=== PATIENT | male | born 1940 | race Caucasian/White ===

== ENCOUNTER 2017-08-21 14:43 | Observation (INO) | payer MEDICARE ==
[2017-08-21] VITALS (8 sets, daily range): BP systolic 95–191; BP diastolic 55–91; PULSE 74–88; RESP 15–22; TEMP 97.9–98.3; O2SAT 97–99
[~2017-08-21] VITALS: Ht 177.8 cm; Wt 76.1 kg
[~2017-08-21 14:43] MED LIST: ASPI81 PO; ATOR80TA41 PO; HYDR12.56 PO; PLAV75TA PO; TRAM50 PO; [UNRECOGNIZED DRUG - SUPPLY]
[2017-08-21] MEDS ORDERED: COUM5TAB PO (14:50)
[2017-08-21] MEDS ORDERED: ASPI-516 CHEW (14:56)
[2017-08-21] MEDS ORDERED: LISI-519 PO (14:56)
[2017-08-21] MEDS ORDERED: ATOR10TA15 PO (14:56)
[2017-08-21] MEDS ORDERED: HYDR12.56 PO (14:56)
[2017-08-21] MEDS ORDERED: ISOS30TA3 PO (14:56)
[2017-08-21] MEDS ORDERED: METO50TA PO (14:56)
[2017-08-21 15:19] LABS: AUTOMATED NEUTROPHIL # 3.8 TH/MM3 (1.8-7.7); BASOPHIL # 0.1 TH/MM3 (0-0.2); BASOPHIL % 0.9 % (0.0-2.0); EOSINOPHIL # 0.3 TH/MM3 (0-0.4); EOSINOPHIL % 2.9 % (0.0-4.0); HEMO FLAGS DIFF FINAL; LYMPH % 39.3 % (9.0-44.0); LYMPHOCYTE # 3.5 TH/MM3 (1.0-4.8); MEAN CELL VOLUME 98.6 FL (80.0-100.0); MEAN CORPUSCULAR HEMOGLOBIN 33.7 PG (27.0-34.0); MEAN CORPUSCULAR HGB CONC 34.2 % (32.0-36.0); MONO % 13.6 % (0.0-8.0); NEUT % 43.3 % (16.0-70.0); PLATELET COUNT 214 TH/MM3 (150-450); RED BLOOD COUNT 4.16 MIL/MM3 (4.50-5.90); RED CELL DISTRIBUTION WIDTH 13.9 % (11.6-17.2); WHITE BLOOD COUNT 8.8 TH/MM3 (4.0-11.0)
[2017-08-21] MEDS ORDERED: SODIUM CHLOR 0.9% 1000 ML INJ 1,000 ML IV ONE (15:30)
--- NOTE | 2017-08-21 15:34 | PD ---
HPI Chief Complaint: Syncope/Near-Syncope Time Seen by Provider: 14:47 Travel History International Travel<30 days: No Contact w/Intl Traveler<30days: No Traveled to known affect area: No History of Present Illness HPI 76-year-old male that presents to the ED for evaluation of syncope. Patient had a witnessed syncopal episode while walking on the sidewalk. Patient hit his head and does not remember what happened. He does not remember what happened before he had the syncopal event. He denies ever having to like this before. He does have a history of ACS as well as defibrillator in place. He denies it going off but he is not sure if she doesn't remember what actually happened. Per patient he did feel weak and lethargic after the incident but now he feels like he is getting more back to normal. He denies any abdominal pain. He does take Coumadin and states that his last Coumadin level was on Wednesday and was normal. He denies any chest pain or shortness of breath. No abdominal pain. Patient complains of headache and has a small superficial abrasion to the back of the head. She denies any neck pain or back pain. No leg or arm pain. Patient has chronic left foot drop and uses this splint for it. He uses a cane usually to ambulate. He denies any other medical issues at this time. Pain per patient is 4 out of 10 mainly on the back of the head. PFSH Past Medical History Blood Disorders: No Heart Rhythm Problems: No Cancer: No Cardiac Catheterization: Yes Cardiovascular Problems: Yes (STENTS X4) High Cholesterol: Yes Chemotherapy: No Chest Pain: No Congestive Heart Failure: No Diabetes: No Endocrine: No Genitourinary: No Hypertension: Yes Musculoskeletal: No Neurologic: Yes Psychiatric: No Respiratory: No Radiation Therapy: No Thyroid Disease: No Tetanus Vaccination: Unknown Influenza Vaccination: No Past Surgical History Coronary Stent: Yes Social History Alcohol Use: Yes (3-4 BEERS DAY X5 DAYS) Tobacco Use: No Substance Use: No Allergies-Medications (Allergen,Severity, Reaction): Coded Allergies: No Known Allergies (Unverified Adverse Reaction, Unknown, 08/21/17) Reported Meds & Prescriptions Reported Meds & Active Scripts Active Reported Atorvastatin (Atorvastatin Calcium) 10 Mg Tab 10 Mg PO HS Hydrochlorothiazide 12.5 Mg Tab 12.5 Mg PO DAILY Isosorbide Mononitrate ER (Isosorbide Mononitrate) 30 Mg Luci 30 Mg PO DAILY Lisinopril 5 Mg Tab 5 Mg PO DAILY Metoprolol Tartrate 50 Mg Tab 50 Mg PO BID Aspirin 81 Mg Chew 81 Mg CHEW DAILY Coumadin (Warfarin) 5 Mg Tab 5 Mg PO DAILY Review of Systems Except as stated in HPI: all other systems reviewed are Neg Physical Exam Narrative GENERAL: SKIN: Warm and dry. Patient has skin abrasion which is about 3 cm in diameter to the occipital head. No obvious sign of deep laceration. HEAD: Atraumatic. Normocephalic. EYES: Pupils equal and round. No scleral icterus. No injection or drainage. ENT: No nasal bleeding or discharge. Mucous membranes pink and moist. Tongue is midline. No uvula deviation. NECK: Trachea midline. No JVD. CARDIOVASCULAR: Regular rate and rhythm. No murmurs, S3, S4. RESPIRATORY: No accessory muscle use. Clear to auscultation. Breath sounds equal bilaterally. GASTROINTESTINAL: Abdomen soft, non-tender, nondistended. Hepatic and splenic margins not palpable. MUSCULOSKELETAL: Extremities without clubbing, cyanosis, or edema. No obvious deformities. Full range of motion of the upper extremities with no pain. 2+ pulses bilaterally. Patient has difficulty moving the left leg which is chronic for him. Pupils pulses bilaterally. Full range of motion right lower extremity with no pain or deformity noted. No hip pain noted. Neurovascular intact with the exception of the left foot for which she has foot drop and weakness. NEUROLOGICAL: Awake and alert. No obvious cranial nerve deficits. Motor grossly within normal limits. Five out of 5 muscle strength in the arms and legs. Normal speech. PSYCHIATRIC: Appropriate mood and affect; insight and judgment normal. Data Data Last Documented VS Vital Signs Date Time Temp Pulse Resp B/P (MAP) Pulse Ox O2 Delivery O2 Flow Rate FiO2 08/21/17 17:15 88 18 135/73 (93) 98 Room Air 08/21/17 14:47 97.9 Orders Orders Electrocardiogram (08/21/17 14:54) Complete Blood Count With Diff (08/21/17 14:54) Comprehensive Metabolic Panel (08/21/17 14:54) Ckmb (Isoenzyme) Profile (08/21/17 14:54) Troponin I (08/21/17 14:54) Prothrombin Time / Inr (Pt) (08/21/17 14:54) Act Partial Throm Time (Ptt) (08/21/17 14:54) Urinalysis - C+S If Indicated (08/21/17 14:54) Magnesium (Mg) (08/21/17 14:54) Thyroid Stimulating Hormone (08/21/17 14:54) Chest, Single Ap (08/21/17 14:54) Ct Brain W/O Iv Contrast(Rout) (08/21/17 14:54) Iv Access Insert/Monitor (08/21/17 14:54) Ecg Monitoring (08/21/17 14:54) Oximetry (08/21/17 14:54) Orthostatic Vital Signs (08/21/17 14:54) Ct Cerv Spine W/O Contrast (08/21/17 ) Sodium Chlor 0.9% 1000 Ml Inj (Ns 1000 M (08/21/17 15:30) CKMB (08/21/17 15:00) CKMB% (08/21/17 15:00) Admit Order (Ed Use Only) (08/21/17 18:15) Labs Laboratory Tests Test 08/21/17 15:00 08/21/17 16:10 08/21/17 17:55 White Blood Count 8.8 TH/MM3 Red Blood Count 4.16 MIL/MM3 Hemoglobin 14.0 GM/DL Hematocrit 41.0 % Mean Corpuscular Volume 98.6 FL Mean Corpuscular Hemoglobin 33.7 PG Mean Corpuscular Hemoglobin Concent 34.2 % Red Cell Distribution Width 13.9 % Platelet Count 214 TH/MM3 Mean Platelet Volume 9.4 FL Neutrophils (%) (Auto) 43.3 % Lymphocytes (%) (Auto) 39.3 % Monocytes (%) (Auto) 13.6 % Eosinophils (%) (Auto) 2.9 % Basophils (%) (Auto) 0.9 % Neutrophils # (Auto) 3.8 TH/MM3 Lymphocytes # (Auto) 3.5 TH/MM3 Monocytes # (Auto) 1.2 TH/MM3 Eosinophils # (Auto) 0.3 TH/MM3 Basophils # (Auto) 0.1 TH/MM3 CBC Comment DIFF FINAL Differential Comment Blood Urea Nitrogen 30 MG/DL Creatinine 1.38 MG/DL Random Glucose 106 MG/DL Total Protein 7.6 GM/DL Albumin 4.2 GM/DL Calcium Level 9.0 MG/DL Magnesium Level 2.3 MG/DL Alkaline Phosphatase 94 U/L Aspartate Amino Transf (AST/SGOT) 34 U/L Alanine Aminotransferase (ALT/SGPT) 31 U/L Total Bilirubin 0.4 MG/DL Sodium Level 132 MEQ/L Potassium Level 4.5 MEQ/L Chloride Level 99 MEQ/L Carbon Dioxide Level 27.9 MEQ/L Anion Gap 5 MEQ/L Estimat Glomerular Filtration Rate 50 ML/MIN Total Creatine Kinase 236 U/L Creatine Kinase MB 3.1 NG/ML Troponin I LESS THAN 0.02 NG/ML Thyroid Stimulating Hormone 3rd Gen 0.785 uIU/ML Prothrombin Time 19.3 SEC Prothromb Time International Ratio 1.9 RATIO Activated Partial Thromboplast Time 30.1 SEC Urine Color LIGHT-YELLOW Urine Turbidity CLEAR Urine pH 5.5 Urine Specific [place] 1.012 Urine Protein NEG mg/dL Urine Glucose (UA) NEG mg/dL Urine Ketones 10 mg/dL Urine Occult Blood NEG Urine Nitrite NEG Urine Bilirubin NEG Urine Urobilinogen LESS THAN 2.0 MG/DL Urine Leukocyte Esterase NEG Urine RBC 2 /hpf Urine WBC LESS THAN 1 /hpf Urine Hyaline Casts 1 /lpf Urine Mucus FEW /lpf Microscopic Urinalysis Comment CULT NOT INDICATED MDM Medical Decision Making Medical Screen Exam Complete: Yes Emergency Medical Condition: Yes Medical Record Reviewed: Yes Interpretation(s) CBC & BMP Diagram 08/21/17 15:00 Total Protein 7.6, Albumin 4.2, Calcium Level 9.0, Magnesium Level 2.3, Alkaline Phosphatase 94, Aspartate Amino Transf (AST/SGOT) 34, Alanine Aminotransferase (ALT/SGPT) 31, Total Bilirubin 0.4 Last Impressions Chest X-Ray 08/21/17 8404 Signed Impressions: Service Date/Time: Monday, August 21, 2017 15:22 - CONCLUSION: 1. No acute cardiopulmonary disease. Juanito Edward MD troponin and CKMB negative coags WNL EKG shows sinus rhythm with no sign of acute ischemia or arrhythmia read by me and attending. CT of the head showed no sign of acute disease but did show what appears to be possible enlargement of the ventricles concerning for possible hydrocephalus per radiology report. This has not changed from CT done on September of this year. CT of the cervical spine show chronic disease with no sign of acute disease. Differential Diagnosis Chest pain versus ACS versus syncope versus presyncope versus orthostatic hypotension versus anemia versus bleeding versus head injury versus bleeding hematoma Narrative Course 76-year-old male that presents to the ED for evaluation of syncope. Patient was properly examined and was found to have signs and symptoms consistent with syncope. Unclear etiology at this time. Orthostatics were positive with more of a 60 point drop in systolic BP. Labs and imaging showed no sign of acute disease. Orthostatics were positive with 60 point drop on the systolic pressure. Patient was very symptomatic. Patient feels better with sitting or laying but whenever he stands he cannot ambulate. Because of patient's commorbidities including significant cardiac disease I do recommend admission for further evaluation. Patient agrees with this plan. My attending Dr. Daley was made aware of all findings and agrees to admission. ROBERT was paged. Dr Nichols agrees to admission. Diagnosis Primary Impression: Syncope Qualified Codes: R55 - Syncope and collapse Additional Impressions: Head injury, acute Qualified Codes: S09.90XA - Unspecified injury of head, initial encounter Orthostatic hypotension Admitting Information Admitting Physician Requests: Admit Mario Hsu Aug 21, 2017 15:34
[2017-08-21 15:47] LABS: ALKALINE PHOSPHATASE 94 U/L (45-117); ALT (GPT) 31 U/L (12-78); ANION GAP 5 MEQ/L (5-15); AST (GOT) 34 U/L (15-37); BICARBONATE 27.9 MEQ/L (21.0-32.0); BLOOD UREA NITROGEN 30 MG/DL (7-18); CHLORIDE 99 MEQ/L (98-107); CREATINE KINASE 236 U/L (39-308); GLOMERULAR FILTRATION RATE 50 ML/MIN (>89); MAGNESIUM 2.3 MG/DL (1.5-2.5); SODIUM (NA) 132 MEQ/L (136-145); TOTAL BILIRUBIN ADULT 0.4 MG/DL (0.2-1.0)
--- NOTE | 2017-08-21 15:48 | RADRPT ---
EXAM DATE/TIME: 08/21/2017 15:22 [facility] COMPARISON: No previous studies available for comparison. INDICATIONS : Syncope. MEDICAL HISTORY : Cardiovascular disease. SURGICAL HISTORY : Defribillator. Stents. ENCOUNTER: Initial ACUITY: 1 day PAIN SCORE: 0/10 LOCATION: Bilateral chest FINDINGS: Dual-lead AICD device in place. No significant focal pleural or parenchymal opacities. Cardiomediasti nal contours are within normal limits for portable technique. Bony thorax is intact. CONCLUSION: 1. No acute cardiopulmonary disease. Juanito Edward MD on August 21, 2017 at 15:45 Board Certified Radiologist. This report was verified electronically.
[2017-08-21 15:51] LABS: POTASSIUM 4.5 MEQ/L (3.5-5.1)
[2017-08-21 16:04] LABS: CKMB 3.1 NG/ML (0.5-3.6)
[2017-08-21 16:34] LABS: APTT (PATIENT) 30.1 SEC (24.3-30.1); INTERNATIONAL NORMALIZED RATIO 1.9 RATIO; PROTHROMBIN TIME - PATIENT 19.3 SEC (9.8-11.6)
--- NOTE | 2017-08-21 17:31 | RADRPT ---
EXAM DATE/TIME: 08/21/2017 16:59 [facility] COMPARISON: No previous studies available for comparison. INDICATIONS : Syncopal episode, hit back of head, headache. RADIATION DOSE: 46.17 CTDIvol (mGy) MEDICAL HISTORY : Cardiovascular disease. Hypertension. SURGICAL HISTORY : Coronary artery stent. ENCOUNTER: Initial ACUITY: 1 day PAIN SCALE: 4/10 LOCATION: Bilateral occipital TECHNIQUE: Multiple contiguous axial images were obtained of the head. Using automated exposure control and adj ustment of the mA and/or kV according to patient size, radiation dose was kept as low as reasonably a chievable to obtain optimal diagnostic quality images. DICOM format image data is available electro nically for review and comparison. FINDINGS: CEREBRUM: Moderate diffuse cerebral atrophy. Left thalamic lacunar infarct. Ventricles are out of proportion to degree of atrophy. This is similar to report of prior CT exam No evidence of midline shift, mass les ion, hemorrhage or acute infarction. No extra-axial fluid collections are seen. POSTERIOR FOSSA: The cerebellum and brainstem are intact. The 4th ventricle is midline. The cerebellopontine angle i s unremarkable. EXTRACRANIAL: The visualized portion of the orbits is intact. SKULL: The calvaria is intact. No evidence of skull fracture. CONCLUSION: 1. Senescent changes with stable left thalamic lacunar infarct. 2. Ventricles are dilated out of proportion to degree of atrophy. This is similar to report of [facility] 09/12/2012. Again, correlation for normal pressure hydrocephalus is recommended. 3. No acute intracranial abnormality. Juanito Edward MD on August 21, 2017 at 17:27 Board Certified Radiologist. This report was verified electronically.
--- NOTE | 2017-08-21 17:33 | RADRPT ---
EXAM DATE/TIME: 08/21/2017 16:59 [facility] COMPARISON: No previous studies available for comparison. INDICATIONS : Syncopal episode, head laceration. RADIATION DOSE: 42.90 CTDIvol (mGy) MEDICAL HISTORY : Cardiovascular disease. Hypertension. SURGICAL HISTORY : Coronary artery stent. ENCOUNTER: Initial ACUITY: 1 day PAIN SCALE: 2/10 LOCATION: Bilateral neck TECHNIQUE: Volumetric scanning of the cervical spine was performed. Multiplanar reconstructions in the sagittal, coronal and oblique axial planes were performed. Using automated exposure control and adjustment o f the mA and/or kV according to patient size, radiation dose was kept as low as reasonably achievable to obtain optimal diagnostic quality images. DICOM format image data is available electronically f or review and comparison. FINDINGS: There is no acute fracture. There is a grade 1 anterolisthesis of C4 on C5 and retrolisthesis of C5 o n C6 which is likely degenerative in nature. There is advanced degenerative disc disease at C5-6. Mod erate AP canal stenosis present at this level. CONCLUSION: No acute fracture. Advanced degenerative disc disease, especially at C5-6 with a grade 1 retrolisthes is and moderate stenosis. Amado Quiros MD on August 21, 2017 at 17:27 Board Certified Radiologist. This report was verified electronically.
[2017-08-21 18:13] LABS: BLOOD, URINE NEG (NEG); COMMENT (UR) CULT NOT INDICATED; CULTURE IF INDICATED CULT NOT INDICATED; GLUCOSE,URINE NEG (NEG); HYALINE CAST, URINE 1 /lpf (RARE); KETONE, URINE 10 mg/dL (NEG); MUCUS URINE FEW /lpf (OCC); NITRITE,URINE NEG (NEG); PH, URINE 5.5 (5.0-8.5); URINE COLOR LIGHT-YELLOW (YELLW/STRAW)
[2017-08-21] MEDS ORDERED: IOHEXOL 350 MG/ML 10 ML VIAL (for RAD DIAG) IVCONTRAST ONE (18:17)
--- NOTE | 2017-08-21 18:57 | HHI.HP ---
HPI Service [facility] Primary Care Physician Unknown Admission Diagnosis acute syncope, orthostatic hypotension Diagnoses: Chief Complaint: dizziness, fall Travel History International Travel<30 Days: No Contact w/Intl Traveler <30 Da: No Traveled to Known Affected Are: No History of Present Illness 76-year-old male with past medical history of hypertension, hyperlipidemia, coronary artery disease with stents, has a defibrillator that presents to the ED for evaluation of syncope. Patient had a witnessed syncopal episode while walking on the sidewalk. Patient hit his head and does not remember what happened. He does not remember what happened before he had the syncopal event. He denies ever having to like this before. He does have a history of ACS as well as defibrillator in place. He denies it going off but he is not sure if she doesn't remember what actually happened. Per patient he did feel weak and lethargic after the incident but now he feels like he is getting more back to normal. He denies any abdominal pain. He does take Coumadin and states that his last Coumadin level was on Wednesday and was normal. He denies any chest pain or shortness of breath. No abdominal pain. Patient complains of headache and has a small superficial abrasion to the back of the head. She denies any neck pain or back pain. No leg or arm pain. Patient has chronic left foot drop and uses this splint for it. He uses a cane usually to ambulate. He denies any other medical issues at this time. Pain per patient is 4 out of 10 mainly on the back of the head. CT scan of head did not show any fracture or hemorrhage. Patient however is noted with orthostatic hypotension. Defibrillator was checked in the emergency room and no events. Review of Systems Except as stated in HPI: all other systems reviewed are Neg Past Family Social History Past Medical History hypertension, hyperlipidemia, coronary artery disease with stents, has a defibrillator Past Surgical History History of cardiac catheterization with 4 stents placed Defibrillator Right Hip replacement Reported Medications Reported Meds & Active Scripts Active Reported Atorvastatin (Atorvastatin Calcium) 10 Mg Tab 10 Mg PO HS Hydrochlorothiazide 12.5 Mg Tab 12.5 Mg PO DAILY Isosorbide Mononitrate ER (Isosorbide Mononitrate) 30 Mg Luci 30 Mg PO DAILY Lisinopril 5 Mg Tab 5 Mg PO DAILY Metoprolol Tartrate 50 Mg Tab 50 Mg PO BID Aspirin 81 Mg Chew 81 Mg CHEW DAILY Coumadin (Warfarin) 5 Mg Tab 5 Mg PO DAILY Allergies: Coded Allergies: No Known Allergies (Unverified Allergy, Unknown, 08/21/17) Family History Father while in war Mother healthy, she had Alzheimer at older age Social History Quit smoking 30 years ago used to smoke one to 2 packs a day for 15 years Occasionally to 3 beers No illicit drug use Physical Exam Vital Signs Vital Signs Date Time Temp Pulse Resp B/P (MAP) Pulse Ox O2 Delivery O2 Flow Rate FiO2 08/21/17 17:15 88 18 135/73 (93) 98 Room Air 08/21/17 15:22 71 17 170/77 (108) 69 15 164/72 (102) 83 18 95/55 (68) 08/21/17 15:08 98 Room Air 08/21/17 14:47 97.9 77 17 191/84 (119) 98 Physical Exam GENERAL: This is a well-nourished, well-developed patient, in no apparent distress. SKIN: Skin abrasion which is about 3 cm in diameter to the occipital head. No obvious sign of deep laceration. Cool and dry. HEAD: Abrasion noted as above. EYES: Pupils equal round and reactive. Extraocular motions intact. No scleral icterus. No injection or drainage. ENT: Nose without bleeding, purulent drainage or septal hematoma. Throat without erythema, tonsillar hypertrophy or exudate. Uvula midline. Airway patent. NECK: Trachea midline. No JVD or lymphadenopathy. Supple, nontender, no meningeal signs. CARDIOVASCULAR: Regular rate and rhythm without murmurs, gallops, or rubs. RESPIRATORY: Clear to auscultation. Breath sounds equal bilaterally. No wheezes , rales, or rhonchi. GASTROINTESTINAL: Abdomen soft, non-tender, nondistended. No hepato-splenomegaly , or palpable masses. No guarding. MUSCULOSKELETAL: Extremities without clubbing, cyanosis, or edema. No joint tenderness, effusion, or edema noted. No calf tenderness. Negative Homans sign bilaterally. NEUROLOGICAL: Awake and alert. Cranial nerves II through XII intact. Motor and sensory grossly within normal limits. Five out of 5 muscle strength in all muscle groups. Normal speech. Laboratory Laboratory Tests Test 08/21/17 15:00 08/21/17 16:10 08/21/17 17:55 White Blood Count 8.8 Red Blood Count 4.16 Hemoglobin 14.0 Hematocrit 41.0 Mean Corpuscular Volume 98.6 Mean Corpuscular Hemoglobin 33.7 Mean Corpuscular Hemoglobin Concent 34.2 Red Cell Distribution Width 13.9 Platelet Count 214 Mean Platelet Volume 9.4 Neutrophils (%) (Auto) 43.3 Lymphocytes (%) (Auto) 39.3 Monocytes (%) (Auto) 13.6 Eosinophils (%) (Auto) 2.9 Basophils (%) (Auto) 0.9 Neutrophils # (Auto) 3.8 Lymphocytes # (Auto) 3.5 Monocytes # (Auto) 1.2 Eosinophils # (Auto) 0.3 Basophils # (Auto) 0.1 CBC Comment DIFF FINAL Differential Comment Blood Urea Nitrogen 30 Creatinine 1.38 Random Glucose 106 Total Protein 7.6 Albumin 4.2 Calcium Level 9.0 Magnesium Level 2.3 Alkaline Phosphatase 94 Aspartate Amino Transf (AST/SGOT) 34 Alanine Aminotransferase (ALT/SGPT) 31 Total Bilirubin 0.4 Sodium Level 132 Potassium Level 4.5 Chloride Level 99 Carbon Dioxide Level 27.9 Anion Gap 5 Estimat Glomerular Filtration Rate 50 Total Creatine Kinase 236 Creatine Kinase MB 3.1 Troponin I LESS THAN 0.02 Thyroid Stimulating Hormone 3rd Gen 0.785 Prothrombin Time 19.3 Prothromb Time International Ratio 1.9 Activated Partial Thromboplast Time 30.1 Urine Color LIGHT-YELLOW Urine Turbidity CLEAR Urine pH 5.5 Urine Specific [place] 1.012 Urine Protein NEG Urine Glucose (UA) NEG Urine Ketones 10 Urine Occult Blood NEG Urine Nitrite NEG Urine Bilirubin NEG Urine Urobilinogen LESS THAN 2.0 Urine Leukocyte Esterase NEG Urine RBC 2 Urine WBC LESS THAN 1 Urine Hyaline Casts 1 Urine Mucus FEW Microscopic Urinalysis Comment CULT NOT INDICATED Result Diagram: 08/21/17 1500 08/21/17 1500 Imaging Last Impressions Head CT 08/21/17 2721 Signed Impressions: Service Date/Time: Monday, August 21, 2017 16:59 - CONCLUSION: 1. Senescent changes with stable left thalamic lacunar infarct. 2. Ventricles are dilated out of proportion to degree of atrophy. This is similar to report of CT dated 09/12/2012. Again, correlation for normal pressure hydrocephalus is recommended. 3. No acute intracranial abnormality. Juanito Edward MD Chest X-Ray 08/21/17 1454 Signed Impressions: Service Date/Time: Monday, August 21, 2017 15:22 - CONCLUSION: 1. No acute cardiopulmonary disease. Juanito Edward MD Cervical Spine CT 08/21/17 0000 Signed Impressions: Service Date/Time: Monday, August 21, 2017 16:59 - CONCLUSION: No acute fracture. Advanced degenerative disc disease, especially at C5-6 with a grade 1 retrolisthesis and moderate stenosis. Amado Quiros MD Caprinrandy VTE Risk Assessment Caprini VTE Risk Assessment: Mod/High Risk (score >= 2) Caprini Risk Assessment Model Point Value = 1 Point Value = 2 Point Value = 3 Point Value = 5 Age 41-60 Minor surgery BMI > 25 kg/m2 Swollen legs Varicose veins or History of unexplained or recurrent spontaneous Oral contraceptives or hormone replacement Sepsis (< 1 month) Serious lung disease, including pneumonia (< 1 month) Abnormal pulmonary function Acute myocardial infarction Congestive heart failure (< 1 month) History of inflammatory bowel disease Medical patient at bed rest Age 61-74 Arthroscopic surgery Major open surgery (> 45 min) Laparoscopic surgery (> 45 min) Malignancy Confined to bed (> 72 hours) Immobilizing plaster cast Central venous access Age >= 75 History of VTE Family history of VTE Factor V Leiden Prothrombin [id number] Lupus anticoagulant Anticardiolipin antibodies Elevated serum homocysteine Heparin-induced thrombocytopenia Other congenital or acquired thrombophilia Stroke (< 1 month) Elective arthroplasty Hip, pelvis, or leg fracture Acute spinal cord injury (< 1 month) Prophylaxis Regimen Total Risk Factor Score Risk Level Prophylaxis Regimen 0-1 Low Early ambulation 2 Moderate Order ONE of the following: *Sequential Compression Device (SCD) *Heparin 5000 units SQ BID 3-4 Higher Order ONE of the following medications: *Heparin 5000 units SQ TID *Enoxaparin/Lovenox 40 mg SQ daily (WT < 150 kg, CrCl > 30 mL/min) *Enoxaparin/Lovenox 30 mg SQ daily (WT < 150 kg, CrCl > 10-29 mL/min) *Enoxaparin/Lovenox 30 mg SQ BID (WT < 150 kg, CrCl > 30 mL/min) AND/OR *Sequential Compression Device (SCD) 5 or more Highest Order ONE of the following medications: *Heparin 5000 units SQ TID (Preferred with Epidurals) *Enoxaparin/Lovenox 40 mg SQ daily (WT < 150 kg, CrCl > 30 mL/min) *Enoxaparin/Lovenox 30 mg SQ daily (WT < 150 kg, CrCl > 10-29 mL/min) *Enoxaparin/Lovenox 30 mg SQ BID (WT < 150 kg, CrCl > 30 mL/min) AND *Sequential Compression Device (SCD) Assessment and Plan Assessment and Plan 76-year-old male that presents to the ED for evaluation of syncope. Orthostatics were positive with more of a 60 point drop in systolic BP. Labs and imaging showed no sign of acute disease. Orthostatics were positive with 60 point drop on the systolic pressure. Patient was very symptomatic. Patient feels better with sitting or laying but whenever he stands he cannot ambulate. Syncope and collapse Head injury, acute Orthostatic hypotension EKG shows sinus rhythm with no sign of acute ischemia or arrhythmia read by me and attending. CT of the head showed no sign of acute disease but did show what appears to be possible enlargement of the ventricles concerning for possible hydrocephalus per radiology report. This has not changed from CT done on September of this year. CT of the cervical spine show chronic disease with no sign of acute disease. troponin and CKMB negative coags WNL Restart home meds. Monitor closely RAMANA. Do orthostatics. Monitor INR as patient on coumadin Continue home meds as appropriate atorvastatin, hydrochlorothiazide, Imdur, lisinopril, metoprolol, aspirin and Coumadin. Adjust blood pressure medications as needed. Currently blood pressure is controlled Monitor on telemetry Order 2-D echo Order ultrasound of the carotids Defibrillator was checked in the emergency room and functioning well He follows with cardiology at [facility] Neuro checks Monitor orthostatic blood pressure Consult PT Case management consult before discharge plan as need DVT prophylaxis SCD/teds, Coumadin monitor INR Discussed Condition With Patient, nurse, ED physician/ Rina Santizo MD Aug 21, 2017 18:57
[2017-08-21] MEDS ORDERED: NALOXONE HCL 0.4 MG/ML AMP IV PUSH PRN (19:00)
[2017-08-21] MEDS ORDERED: LACTULOSE SYRUP 20 GM/30 ML CUP PO PRN (19:00)
[2017-08-21] MEDS ORDERED: SODIUM CHLORIDE 0.9% FLUSH 10 ML FLUSH IV FLUSH PRN (19:00)
[2017-08-21] MEDS ORDERED: ACETAMINOPHEN 325 MG TAB PO PRN (19:00)
[2017-08-21] MEDS ORDERED: SENNOSIDES 8.6 MG TAB PO PRN (19:00)
[2017-08-21] MEDS ORDERED: MAGNESIUM HYDROXIDE SUSP 30 ML CUP PO PRN (19:00)
[2017-08-21] MEDS ORDERED: BISACODYL 10 MG SUPP RECTAL PRN (19:00)
[2017-08-21] MEDS ORDERED: ONDANSETRON HCL 4 MG/2 ML VIAL IVP PRN (19:00)
[2017-08-21] MEDS: DOCUSATE SODIUM 50 MG/SENNA 8.6 MG TAB PO SCH (21:00)
--- NOTE | 2017-08-21 21:08 | EKG ---
Date Performed: 08/21/2017 Time Performed: 14:55:09 PTAGE: 76 years EKG: Sinus rhythm WITH FIRST DEGREE AV BLOCK POSSIBLE LEFT ATRIAL ENLARGEMENT BORDERLINE LEFT AXIS DEVIATION RIGHT BUN DLE BRANCH BLOCK ABNORMAL ECG PREVIOUS TRACING : 09/16/2012 05.36 No significant change from previous tracing noted. DOCTOR: Nigel Guerra Interpretating Date/Time 08/21/2017 21:06:42
--- NOTE | 2017-08-21 22:11 | RADRPT ---
EXAM DATE/TIME: 08/21/2017 21:28 [facility] COMPARISON: No previous studies available for comparison. INDICATIONS : Syncope. MEDICAL HISTORY : Hypercholesterolemia. Hypertension. SURGICAL HISTORY : Cardiac catheterization. Coronary stent. Internal defibrillator. ENCOUNTER: Initial ACUITY: 1 day PAIN SCORE: 6/10 LOCATION: Bilateral neck PEAK SYSTOLIC VELOCITIES (cm/sec): ICA/CCA RATIO: Right: 1.7 Left: 1.0 ICA: Right: 113.9 Left: 66.6 CCA: Right: 65.9 Left: 67.7 ECA: Right: 116.2 Left: 54.8 VERTEBRAL: Right: 34.8 antegrade Left: 44.9 antegrade Elevated flow velocities and ICA/CCA ratios have been found to correlate with increased degrees of vessel stenosis, calculated as percentage of diameter relative to a normal segment of distal ICA/CCA FINDINGS: There is moderate to severe visible plaque formation around the right carotid bifurcation a moderate plaque at the left carotid bifurcation. Elevated peak systolic velocity ratio in systolic velocity on the right relative to the left. Vertebral artery flow antegrade. CONCLUSION: 1. Ultrasound findings suggest at least moderate stenosis at the right carotid bifurcation. This woul d be better evaluated with CTA carotids. Amado Quiros MD on August 21, 2017 at 22:07 Board Certified Radiologist. This report was verified electronically.
[2017-08-22] VITALS (8 sets, daily range): BP systolic 129–163; BP diastolic 60–80; PULSE 59–75; RESP 18–22; TEMP 97.9–98.2; O2SAT 95–98
[2017-08-22] MEDS: ATORVASTATIN 10 MG TAB PO SCH ×2 (02:02→23:00)
[2017-08-22] MEDS: SODIUM CHLORIDE 0.9% FLUSH 10 ML FLUSH IV FLUSH SCH ×3 (02:02→21:00)
[2017-08-22] MEDS: METOPROLOL TARTRATE 50 MG TAB PO SCH ×3 (02:02→23:01)
[2017-08-22] MEDS: SODIUM CHLOR 0.9% 1000 ML INJ 1,000 ML IV SCH ×3 (02:03→21:05)
[2017-08-22 08:27] LABS: BASOPHIL % 0.6 % (0.0-2.0); EOSINOPHIL # 0.2 TH/MM3 (0-0.4); EOSINOPHIL % 2.8 % (0.0-4.0); HEMATOCRIT 40.1 % (39.0-51.0); HEMO FLAGS DIFF FINAL; LYMPH % 26.8 % (9.0-44.0); LYMPHOCYTE # 1.9 TH/MM3 (1.0-4.8); MEAN CELL VOLUME 99.3 FL (80.0-100.0); MEAN CORPUSCULAR HEMOGLOBIN 33.9 PG (27.0-34.0); MEAN CORPUSCULAR HGB CONC 34.2 % (32.0-36.0); MONO % 13.4 % (0.0-8.0); NEUT % 56.4 % (16.0-70.0); PLATELET COUNT 199 TH/MM3 (150-450); RED BLOOD COUNT 4.04 MIL/MM3 (4.50-5.90); RED CELL DISTRIBUTION WIDTH 14.3 % (11.6-17.2); WHITE BLOOD COUNT 7.2 TH/MM3 (4.0-11.0)
[2017-08-22 08:34] LABS: INTERNATIONAL NORMALIZED RATIO 1.5 RATIO; PROTHROMBIN TIME - PATIENT 15.1 SEC (9.8-11.6)
[2017-08-22] MEDS: ASPIRIN 81 MG CHEW TAB CHEW SCH (08:40)
[2017-08-22] MEDS: ISOSORBIDE MONONITRATE 30 MG TAB PO SCH (08:41)
[2017-08-22] MEDS: DOCUSATE SODIUM 50 MG/SENNA 8.6 MG TAB PO SCH ×2 (08:41→21:00)
[2017-08-22 08:47] LABS: BICARBONATE 27.9 MEQ/L (21.0-32.0); POTASSIUM 4.6 MEQ/L (3.5-5.1)
[2017-08-22] MEDS ORDERED: WARFARIN SOD 5 MG TAB PO SCH ×2 (09:00→16:00)
[2017-08-22] MEDS ORDERED: HYDROCHLOROTHIAZIDE 12.5 MG CAP PO SCH (09:00)
[2017-08-22] MEDS ORDERED: LISINOPRIL 5 MG TAB PO SCH (09:00)
[2017-08-22] MEDS ORDERED: WALKER WHEELS/F1 MIS (12:06)
--- NOTE | 2017-08-22 12:06 | MB ---
cc: HIEU DAUGHERTY M.D. DATE OF CONSULTATION: 08/22/2017 REASON FOR CONSULTATION: Syncopal episode HISTORY OF PRESENT ILLNESS: The patient is a 76-year-old seen in neurological consultation regards to syncopal episode. This happened yesterday. He says he was talking to a friend and the next thing he remembered he was getting in the ambulance. He has been overall fine ever since. He never had a syncopal episode before. He denies stroke, TIAs, seizure. He does have a cardiovascular history including defibrillator, stenting, and he is on Coumadin. History of right hip replacement in 2016. Chronic left foot drop and he uses a brace. EXAMINATION: The exam shows an alert, pleasant and oriented man. He lives alone. His ocular movements and visual jeffery were full. There is no facial weakness. He had good strength with the upper and lower extremities except for the left foot drop which is moderately severe with some anterior left calf muscle wasting. Reflexes were 1+, trace at the ankles. Plantar responses flexor. Per the nursing staff there was some orthostatic hypotension noted in the evening. IMAGING STUDIES: The CT head showed evolutional change and old lacunar in the thalamus, the study was similar to 2013, and also showed some ventricular enlargement but unchanged. The carotid ultrasound showed at least moderate stenosis on the right. LABORATORY DATA: The laboratory data includes an INR 1.9. Chemistry with BUN 30, creatinine 1.38 yesterday, and today BUN 19, creatinine 1.16. GFR went from 50 to 61. Sodium, potassium normal today but sodium yesterday was 132. ASSESSMENT Syncopal episode, indeterminate cause. There is a cardiovascular history. He has been on Coumadin. There was no intracranial hemorrhage by CT. 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 I will request a CT angio though it sounds like this carotid disease is asymptomatic. Continue his medications which include a baby aspirin and warfarin. He is going to be followed and during his stay in the hospital, will do an EEG as well tomorrow. This EEG also could be obtained as an outpatient. I am looking at the CT scan as it shows some ventricular enlargement but it is stable in comparison from the scan of 2013. This ventricular enlargement may need to be followed. Thank you for asking us to assist in his care. I will follow him along with you. MD BONNIE Barrios/BLANCA /11:15 AM /11:57 AM
--- NOTE | 2017-08-22 12:26 | HHI.PR ---
Subjective Remarks Follow-up on patient with syncopal episode. Patient seen and examined. Patient states on the morning he passed out that he woke up feeling well proceeded with his normal routine ate breakfast, checked the mail and walked over to speak to his neighbor when he suddenly passed out. Patient denies any complaints preceding the syncopal episode including no lightheadedness, dizziness, vision changes, palpitations, shortness of breath, chest pain, nausea or vomiting. He denies any weakness, numbness, tingling or slurred speech. Patient is unsure for how long he lost consciousness. Patient denies stool or urinary incontinence or tongue biting. He denies any history of seizure disorder. He denies any previous syncopal episode. Patient states he feels well. He states he had a little bit of a headache last night but none today. He denies any medical complaints at present. Patient denies any frequent urination or change in gait. He does state that he uses a cane to aid with ambulation secondary to bilateral hip replacements. He denies any memory problems. Objective Vitals Vital Signs Date Time Temp Pulse Resp B/P (MAP) Pulse Ox O2 Delivery O2 Flow Rate FiO2 08/22/17 08:27 98.2 60 18 147/67 (93) 98 08/22/17 04:04 98.0 60 22 163/68 (99) 95 149/64 (92) 145/67 (93) 08/22/17 04:04 59 08/22/17 00:06 75 08/22/17 00:00 98.1 69 20 148/66 (93) 96 142/62 (88) 146/67 (93) 08/21/17 20:52 74 08/21/17 20:00 98.3 82 22 169/72 (104) 97 187/81 (116) 160/71 (100) 08/21/17 19:43 08/21/17 19:28 99 08/21/17 19:09 83 20 154/91 (112) 98 Room Air 08/21/17 17:15 88 18 135/73 (93) 98 Room Air 08/21/17 15:22 71 17 170/77 (108) 69 15 164/72 (102) 83 18 95/55 (68) 08/21/17 15:08 98 Room Air 08/21/17 14:47 97.9 77 17 191/84 (686) 98 I/O 08/21/17 08/21/17 08/21/17 08/22/17 08/22/17 08/22/17 07:00 15:00 23:00 07:00 15:00 23:00 Intake Total 1000 ml 100 ml Output Total 625 ml Balance 1000 ml -525 ml Intake Oral 100 ml IV Total 1000 ml Output Urine Total 625 ml Result Diagram: 08/22/17 0800 08/22/17 0800 Imaging Last Impressions Head CT 08/21/17 1454 Signed Impressions: Service Date/Time: Monday, August 21, 2017 16:59 - CONCLUSION: 1. Senescent changes with stable left thalamic lacunar infarct. 2. Ventricles are dilated out of proportion to degree of atrophy. This is similar to report of CT dated 09/12/2012. Again, correlation for normal pressure hydrocephalus is recommended. 3. No acute intracranial abnormality. Juanito Edward MD Chest X-Ray 08/21/17 1454 Signed Impressions: Service Date/Time: Monday, August 21, 2017 15:22 - CONCLUSION: 1. No acute cardiopulmonary disease. Juanito Edward MD Cervical Spine CT 08/21/17 0000 Signed Impressions: Service Date/Time: Monday, August 21, 2017 16:59 - CONCLUSION: No acute fracture. Advanced degenerative disc disease, especially at C5-6 with a grade 1 retrolisthesis and moderate stenosis. Amado Quiros MD Carotid Artery Ultrasound 08/21/17 0000 Signed Impressions: Service Date/Time: Monday, August 21, 2017 21:28 - CONCLUSION: 1. Ultrasound findings suggest at least moderate stenosis at the right carotid bifurcation. This would be better evaluated with CTA carotids. Amado Quiros MD Objective Remarks GENERAL: This is a well-nourished, well-developed patient, in no apparent distress. Awake and alert. Sitting up in hospital bed. SKIN: Skin abrasion which is about 3 cm in diameter to the occipital head. No obvious sign of deep laceration. HEAD: Abrasion noted as above. EYES: Extraocular motions intact. No scleral icterus. No injection or drainage. ENT: Nose without bleeding or purulent drainage. Airway patent. MMM. NECK: Trachea midline. CARDIOVASCULAR: Regular rate and rhythm without murmurs, gallops, or rubs. RESPIRATORY: Clear to auscultation. Breath sounds equal bilaterally. No wheezes , rales, or rhonchi. GASTROINTESTINAL: Abdomen soft, non-tender, nondistended. No hepato-splenomegaly , or palpable masses. No guarding. MUSCULOSKELETAL: Extremities without clubbing, cyanosis, or edema. NEUROLOGICAL: Awake and alert. Cranial nerves II through XII grossly intact. Motor and sensory grossly within normal limits except for left foot drop. Normal speech. Medications and IVs Current Medications Medications (Trade) Dose Ordered Sig/Sailaja Route Start Time Stop Time Status Last Admin (NS Flush) 2 ml UNSCH PRN IV FLUSH 08/21/17 19:00 (NS Flush) 2 ml BID IV FLUSH 08/21/17 21:00 08/22/17 09:00 (Tylenol) 650 mg Q4H PRN PO 08/21/17 19:00 08/22/17 03:40 (Zofran Inj) 4 mg Q6H PRN IVP 08/21/17 19:00 (Narcan Inj) 0.4 mg UNSCH PRN IV PUSH 08/21/17 19:00 (Shahida-Colace) 1 tab BID PO 08/21/17 21:00 08/22/17 08:41 (Milk Of Magnesia Liq) 30 ml Q12H PRN PO 08/21/17 19:00 (Senokot) 17.2 mg Q12H PRN PO 08/21/17 19:00 (Dulcolax Supp) 10 mg DAILY PRN RECTAL 08/21/17 19:00 (Lactulose Liq) 30 ml DAILY PRN PO 08/21/17 19:00 (Aspirin Chew) 81 mg DAILY CHEW 08/22/17 09:00 08/22/17 08:40 (Lipitor) 10 mg HS PO 08/21/17 21:00 08/22/17 02:02 (Imdur) 30 mg DAILY PO 08/22/17 09:00 08/22/17 08:41 (Lopressor) 50 mg BID PO 08/21/17 21:00 08/22/17 08:40 (Coumadin) 5 mg DAILY@1600 PO 08/22/17 09:00 08/22/17 09:00 Sodium Chloride 1,000 ml @ 84 mls/hr [id number] IV 08/21/17 21:15 08/22/17 09:10 (Pneumovax-23 Inj) 25 mcg ONCE ONCE IM 08/23/17 10:00 08/23/17 10:01 A/P Assessment and Plan 76-year-old male that presents to the ED for evaluation of syncope. Syncopal episode - CT head shows no signs of acute disease but did reveal possible enlargement of the ventricles concerning for possible hydrocephalus, unchanged from CT done in September. - CT of the cervical spine shows chronic degenerative disc changes - Defibrillator was checked in the emergency room and functioning well - Consult Neurology, appreciate recommendations - Carotid US reveals moderate stenosis of the right carotid bifurcation CTA recommended. Will defer further imaging to neurology in light of patient's recent JORGE. - 2D echo pending - Orthostatics positive, patient had drop in systolic blood pressure from 170 -95 upon standing. ACEI and HCTZ on hold. BP improved. Repeat orthostatics negative. - troponin 0.02 - Evaluated by PT, recommendation for wheeled walker, no PT at discharge JORGE - improving with IVF - continue to hold HCTZ and ACEI - avoid nephrotoxic agents - monitor kidney function as indicated Hyponatremia - Secondary to hydrochlorothiazide, on hold - resolved with IV fluids CAD s/p cardiac stents Ischemic cardiomyopathy s/p AICD placement Hx of arrhythmia, patient states he does not know if he has atrial fibrillation - continue on amiodarone, Imdur and Lopressor - ASA daily - patient on Coumadin 5mg daily. INR subtherapeutic. Pharmacy to dose. Continue to monitor INR. Coumadin diet. Hypertension Orthostatic hypotension, improved - Lisinopril and HCTZ on hold, continue - Continue to monitor BP and adjust treatment accordingly DVT prophylaxis - Patient is on Coumadin Discussed with patient, nursing staff and Dr. Reese Discharge Planning Discharge pending neurology clearance Attending Statement The exam, history, and the medical decision-making described in the above note were completed with the assistance of the mid-level provider. I reviewed and agree with the findings presented. I attest that I had a [id number] encounter with the patient on the same day, and personally performed and documented my assessment and findings in the medical record. f/u for syncope no episode of syncope since admitted. denied any CP, lightheadedness, palpitation, and SOB Gen NAD Cardiovascular regular rate and was always murmurs or gallops Respiratory clear station bilaterally Abdomen soft neg nontender Neuro AAO 4. Cranial nerves II through XII is intact. Sensation and motor grossly intact. a/p Syncope -Neurologist consulted. Recommend a CTA by neurologist -also recommend echo and EEG. -Pending further workup to determine treatment. -Continue with Coumadin and aspirin. -Continue monitoring with telemetry. Brook Mcgee Aug 22, 2017 12:26 Thu Reese MD Aug 22, 2017 16:42
[2017-08-22] MEDS ORDERED: WARFARIN SOD 2.5 MG TAB PO ONE (16:00)
--- NOTE | 2017-08-22 18:24 | RADRPT ---
EXAM DATE/TIME: 08/22/2017 16:39 [facility] COMPARISON: No previous studies available for comparison. INDICATIONS : Syncopal episode yesterday; evaluate for carotid disease. IV CONTRAST: 80 cc Omnipaque 350 (iohexol) IV RADIATION DOSE: 16.87 CTDIvol (mGy) MEDICAL HISTORY : Cardiovascular disease. Hypertension. SURGICAL HISTORY : Defibrillator. ENCOUNTER: Initial ACUITY: 2 days PAIN SCALE: 0/10 LOCATION: neck Elevated flow velocities and ICA/CCA ratios have been found to correlate with increased degrees of vessel stenosis, calculated as percentage of diameter relative to a normal segment of distal ICA/CCA. TECHNIQUE: Volumetric scanning was performed using a multirow detector CT scanner. The data was post processed with a variety of visualization algorithms including full-volume maximum intensity projection, multip lanar sliding thin-slab reformation, curved-planar reformation, and surface-rendering techniques. Us ing automated exposure control and adjustment of the mA and/or kV according to patient size, radiatio n dose was kept as low as reasonably achievable to obtain optimal diagnostic quality images. DICOM f ormat image data is available electronically for review and comparison. FINDINGS: AORTIC ARCH: There is a three-vessel origin of the great vessels from the aorta. No evidence of ostial narrowing. RIGHT CAROTID: The common carotid artery is intact. The carotid bulb has a normal configuration without ulceration o r narrowing. There are calcifications of the carotid bulbs without significant stenosis. The internal carotid artery lumen is smooth without stenosis. The external carotid artery is intact. LEFT CAROTID: The common carotid artery is intact. The carotid bulb has a normal configuration without ulceration or narrowing. There are calcifications of the carotid bulbs without significant stenosis. The analysis internship al carotid artery lumen is smooth without stenosis. The external carotid artery is intact. VERTEBRALS: The vertebral arteries have a symmetric diameter. No stenotic lesions are seen. OTHER: There is prominent venous flow throughout the neck likely representing collaterals from some narrowin g of the left innominate vein. This could be the consequence of a pacemaker being in place. CONCLUSION: 1. No significant stenosis is seen. 2. Calcifications and carpal regions without significant stenosis. 3. 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 Favian Barrera MD on August 22, 2017 at 18:18 Board Certified Radiologist. This report was verified electronically.
[2017-08-23 00:22] VITALS: BP 148/65; PULSE 60; RESP 22; TEMP 97.7; O2SAT 95
[2017-08-23] MEDS: SODIUM CHLOR 0.9% 1000 ML INJ 1,000 ML IV SCH (03:16)
[2017-08-23 03:54] VITALS: BP 154/69; PULSE 63; RESP 20; TEMP 97.9; O2SAT 96
[2017-08-23 04:35] LABS: INTERNATIONAL NORMALIZED RATIO 1.3 RATIO; PROTHROMBIN TIME - PATIENT 13.3 SEC (9.8-11.6)
[2017-08-23 04:39] VITALS: PULSE 59
[2017-08-23] MEDS: SODIUM CHLORIDE 0.9% FLUSH 10 ML FLUSH IV FLUSH SCH (07:52)
[2017-08-23] MEDS: ISOSORBIDE MONONITRATE 30 MG TAB PO SCH (07:53)
[2017-08-23] MEDS: DOCUSATE SODIUM 50 MG/SENNA 8.6 MG TAB PO SCH (07:53)
[2017-08-23] MEDS: METOPROLOL TARTRATE 50 MG TAB PO SCH (07:53)
[2017-08-23] MEDS: ASPIRIN 81 MG CHEW TAB CHEW SCH (07:53)
[2017-08-23 08:00] VITALS: BP 178/79; PULSE 61; RESP 18; TEMP 97.6; O2SAT 97
[2017-08-23 09:34] LABS: BICARBONATE 28.4 MEQ/L (21.0-32.0); POTASSIUM 4.2 MEQ/L (3.5-5.1)
--- NOTE | 2017-08-23 09:55 | HHI.DCPOC ---
Discharge Care Plan Diagnosis: (1) Physical deconditioning (2) Subtherapeutic international normalized ratio (INR) (3) On warfarin at home (4) Orthostatic hypotension (5) Syncope (6) Acute kidney injury (7) Head injury, acute (8) History of cardiac arrhythmia Goals to Promote Your Health * To prevent worsening of your condition and complications * To maintain your health at the optimal level Directions to Meet Your Goals No driving, operating heavy machinery or swimming alone until cleared by Neurology Take your medications as prescribed Follow your dietary instruction Follow activity as directed Keep your appointments as scheduled Take your immunizations and boosters as scheduled If your symptoms worsen call your PCP, if no PCP go to Urgent Care Center or Emergency Room Smoking is Dangerous to Your Health. Avoid second hand smoke Call the 24-hour hour crisis hotline for domestic abuse at Brook Mcgee Aug 23, 2017 09:55
[2017-08-23] MEDS ORDERED: PNEUMOCOCCAL POLYVALENT INJ 25 MCG/0.5 ML SYR IM ONE (10:00)
--- NOTE | 2017-08-23 10:22 | HHI.PR ---
Objective Result Diagram: 08/22/17 0800 08/23/17 0848 Brook Mcgee Aug 23, 2017 10:22
[2017-08-23] MEDS ORDERED: LISINOPRIL 5 MG TAB PO ONE (12:00)
--- NOTE | 2017-08-23 12:03 | HHI.PR ---
Subjective Remarks Follow up on patient with syncopal episode. Patient states he feels very well. He is hoping to go home today. No recurrence of syncope. No dizziness, lightheadedness or vision changes. Patient denies any headache, weakness, numbness or tingling. He denies any fever or chills. Denies any chest pain or dyspnea. Denies any nausea, vomiting or abdominal pain. Objective Vitals Vital Signs Date Time Temp Pulse Resp B/P (MAP) Pulse Ox O2 Delivery O2 Flow Rate FiO2 08/23/17 08:00 97.6 61 18 178/79 (112) 97 08/23/17 04:39 59 08/23/17 03:54 97.9 63 20 154/69 (97) 96 08/23/17 00:22 97.7 60 22 148/65 (92) 95 08/22/17 22:58 98 21 08/22/17 20:15 98.2 65 22 129/80 (96) 96 08/22/17 16:01 97.9 60 18 148/60 (89) 96 08/22/17 12:16 97.9 62 18 142/60 (87) 97 I/O 08/22/17 08/22/17 08/22/17 08/23/17 08/23/17 08/23/17 07:00 15:00 23:00 07:00 15:00 23:00 Intake Total 100 ml 480 ml Output Total 625 ml 1500 ml Balance -525 ml -1020 ml Intake Oral 100 ml 480 ml Output Urine Total 625 ml 1500 ml # Voids 2 # Bowel Movements 2 Result Diagram: 08/22/17 0800 08/22/17 0800 Imaging Last Impressions Neck CTA 08/22/17 0000 Signed Impressions: Service Date/Time: Tuesday, August 22, 2017 16:39 - CONCLUSION: 1. No significant stenosis is seen. 2. Calcifications and carpal regions without significant stenosis. 3. 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 Favian Barrera MD Head CT 08/21/17 1454 Signed Impressions: Service Date/Time: Monday, August 21, 2017 16:59 - CONCLUSION: 1. Senescent changes with stable left thalamic lacunar infarct. 2. Ventricles are dilated out of proportion to degree of atrophy. This is similar to report of CT dated 09/12/2012. Again, correlation for normal pressure hydrocephalus is recommended. 3. No acute intracranial abnormality. Juanito Edward MD Chest X-Ray 08/21/17 1454 Signed Impressions: Service Date/Time: Monday, August 21, 2017 15:22 - CONCLUSION: 1. No acute cardiopulmonary disease. Juanito Edward MD Cervical Spine CT 08/21/17 0000 Signed Impressions: Service Date/Time: Monday, August 21, 2017 16:59 - CONCLUSION: No acute fracture. Advanced degenerative disc disease, especially at C5-6 with a grade 1 retrolisthesis and moderate stenosis. Amado Quiros MD Carotid Artery Ultrasound 08/21/17 0000 Signed Impressions: Service Date/Time: Monday, August 21, 2017 21:28 - CONCLUSION: 1. Ultrasound findings suggest at least moderate stenosis at the right carotid bifurcation. This would be better evaluated with CTA carotids. Amado Quiros MD Objective Remarks GENERAL: This is a well-nourished, well-developed patient, in no apparent distress. Awake and alert. Sitting up in hospital bed. Appears comfortable. SKIN: Skin abrasion which is about 3 cm in diameter to the occipital head. No obvious sign of deep laceration. HEAD: Abrasion noted as above. EYES: Extraocular motions intact. No scleral icterus. No injection or drainage. ENT: Nose without bleeding or purulent drainage. Airway patent. MMM. NECK: Trachea midline. CARDIOVASCULAR: Regular rate and rhythm without murmurs, gallops, or rubs. RESPIRATORY: Clear to auscultation. Breath sounds equal bilaterally. No wheezes , rales, or rhonchi. GASTROINTESTINAL: Abdomen soft, non-tender, nondistended. No hepato-splenomegaly , or palpable masses. No guarding. MUSCULOSKELETAL: Extremities without clubbing, cyanosis, or edema. NEUROLOGICAL: Awake and alert. Able to move all extremities. Motor and sensory grossly within normal limits except for left foot drop. Normal speech. Medications and IVs Current Medications Medications (Trade) Dose Ordered Sig/Sailaja Route Start Time Stop Time Status Last Admin (NS Flush) 2 ml UNSCH PRN IV FLUSH 08/21/17 19:00 (NS Flush) 2 ml BID IV FLUSH 08/21/17 21:00 08/23/17 07:52 (Tylenol) 650 mg Q4H PRN PO 08/21/17 19:00 08/22/17 03:40 (Zofran Inj) 4 mg Q6H PRN IVP 08/21/17 19:00 (Narcan Inj) 0.4 mg UNSCH PRN IV PUSH 08/21/17 19:00 (Shahida-Colace) 1 tab BID PO 08/21/17 21:00 08/23/17 07:53 (Milk Of Magnesia Liq) 30 ml Q12H PRN PO 08/21/17 19:00 (Senokot) 17.2 mg Q12H PRN PO 08/21/17 19:00 (Dulcolax Supp) 10 mg DAILY PRN RECTAL 08/21/17 19:00 (Lactulose Liq) 30 ml DAILY PRN PO 08/21/17 19:00 (Aspirin Chew) 81 mg DAILY CHEW 08/22/17 09:00 08/23/17 07:53 (Lipitor) 10 mg HS PO 08/21/17 21:00 08/22/17 23:00 (Imdur) 30 mg DAILY PO 08/22/17 09:00 08/23/17 07:53 (Lopressor) 50 mg BID PO 08/21/17 21:00 08/23/17 07:53 Sodium Chloride 1,000 ml @ 84 mls/hr [id number] IV 08/21/17 21:15 08/23/17 03:16 (Pneumovax-23 Inj) 25 mcg ONCE ONCE IM 08/23/17 10:00 08/23/17 10:01 Pharmacy Profile Note 0 ml @ 0 mls/hr UNSCH OTHER 08/22/17 12:30 (Coumadin) 5 mg DAILY@1600 PO 08/23/17 16:00 (Coumadin) 5 mg ONCE@1600 ONCE PO 08/23/17 16:00 08/23/17 16:01 A/P Assessment and Plan 76-year-old male that presents to the ED for evaluation of syncope. Syncopal episode - CT head shows no signs of acute disease but did reveal possible enlargement of the ventricles concerning for possible hydrocephalus, unchanged from CT done in September. - CT of the cervical spine shows chronic degenerative disc changes - Defibrillator was checked in the emergency room and functioning well - Neurology following. Recommends baby aspirin and Coumadin. Cleared for discharge from Neurologic standpoint. Will do EEG as outpatient. Patient advised to not drive, operate heavy machinery or swim alone until cleared by neurology. - Carotid US reveals moderate stenosis of the right carotid bifurcation CTA recommended. Follow up Neck CTA showed no significant stenosis. - 2D echo pending - he should to follow up with neurologist and/or support merchandiser for echo results. - Orthostatics positive, patient had drop in systolic blood pressure from 170 -95 upon standing. ACEI and HCTZ on hold. BP improved. Repeat orthostatics negative. - troponin 0.02, TSH 0.785 - Evaluated by PT, recommendation for wheeled walker, no PT at discharge JORGE - resolved with IVF - HCTZ and ACEI held. Lisinopril resumed. Recommended patient continue to hold hydrochlorothiazide and follow-up with primary care physician before resuming. - avoid nephrotoxic agents - monitor kidney function as indicated Hyponatremia - Secondary to hydrochlorothiazide, on hold - resolved with IV fluids CAD s/p cardiac stents Ischemic cardiomyopathy s/p AICD placement Hx of arrhythmia, patient states he does not know if he has atrial fibrillation - continue on amiodarone, Imdur and Lopressor - ASA daily - patient on Coumadin 5mg daily. INR subtherapeutic. Pharmacy to dose. Continue to monitor INR. Coumadin diet. Additional 5mg Coumadin dose for today. Advised patient to follow-up with PCP tomorrow to have PT/INR repeated as not therapeutic. Patient stated understanding. Hypertension Orthostatic hypotension, improved - resume Lisinopril. Continue to hold ACEI. - Continue to monitor BP and adjust treatment accordingly DVT prophylaxis - Patient is on Coumadin Discussed with patient, nursing staff and Dr. Reese Discharge patient to home Condition on discharge: Improved Heart heart healthy, Coumadin Diet as tolerated Activity ambulate with wheeled walker. No driving, operating heavy machinery or swimming alone until cleared by neurology. Rx written: resume home medications except hydrochlorothiazide Follow-up with primary care physician and Dr. Barahona Neurology and cardiology Discharge Planning Discharge pending completion of echocardiogram study Brook Mcgee Aug 23, 2017 10:35
[2017-08-23 12:27] VITALS: BP 174/76; PULSE 62; RESP 17; TEMP 97.8; O2SAT 95
[2017-08-23 15:02] VITALS: BP 166/77
[2017-08-23] MEDS ORDERED: WARFARIN SOD 5 MG TAB PO ONE (16:00)
[2017-08-23] MEDS ORDERED: WARFARIN SOD 5 MG TAB PO SCH (16:00)
--- NOTE | 2017-08-23 17:57 | ECHRPT ---
Indication: SOB CONCLUSIONS Mildly dilated left ventricle. Wall thickness is normal. The left ventricular systolic function is mildly reduced with an estimated ejection fraction of 45%. Mitral annular calcification is present. Trace mitral valve regurgitation. Moderate thickening of the mitral valve leaflet. Aortic valve sclerosis is present. Trace aortic valve regurgitation. BP: 154 / 69 HR: 63 Rhythm: MEASUREMENTS (Male / Female) Normal Values Technical Quality:Good 2D ECHO LV Diastolic Diameter PLAX 5.3 cm 4.2 - 5.9 / 3.9 - 5.3 cm LV Systolic Diameter PLAX 4.4 cm IVS Diastolic Thickness 0.9 cm 0.6 - 1.0 / 0.6 - 0.9 cm LVPW Diastolic Thickness 0.6 cm 0.6 - 1.0 / 0.6 - 0.9 cm LV Relative Wall Thickness 0.3 RV Internal Dim ED PLAX 2.8 cm LA Systolic Diameter LX 3.5 cm 3.0 - 4.0 / 2.7 - 3.8 cm DOPPLER AV Peak Velocity 277.5 cm/s AV Peak Gradient 30.8 mmHg AV Mean Gradient 11.0 mmHg AV Velocity Time Integral 53.7 cm LVOT Peak Velocity 85.7 cm/s LVOT Peak Gradient 2.9 mmHg LVOT Velocity Time Integral 23.8 cm Mitral E Point Velocity 83.9 cm/s Mitral A Point Velocity 103.0 cm/s Mitral E to A Ratio 0.8 TR Peak Velocity 240.0 cm/s TR Peak Gradient 23.0 mmHg FINDINGS LEFT VENTRICLE Mildly dilated left ventricle. Wall thickness is normal. The left ventricular systolic function is mildly reduced with an estimated ejection fraction of 45%. RIGHT VENTRICLE Normal right ventricular size and systolic function. LEFT ATRIUM The left atrial size is normal. RIGHT ATRIUM The right atrial size is normal. ATRIAL SEPTUM Normal atrial septal thickness without atrial level shunting by limited color doppler interrogation. AORTA The aortic root and proximal ascending aorta are normal in size on limited imaging. MITRAL VALVE Mitral annular calcification is present. Trace mitral valve regurgitation. Moderate thickening of the mitral valve leaflet. AORTIC VALVE Aortic valve sclerosis is present. Trace aortic valve regurgitation. TRICUSPID VALVE Structurally normal tricuspid valve. No tricuspid valve stenosis or regurgitation. PULMONARY VALVE The pulmonary valve is not well visualized. VESSELS The inferior vena cava is normal in size. PERICARDIUM No pericardial effusion. Mei Garduno MD, FACC (Electronically Signed) Final Date:23 August 2017 17:55 Amended: 23 August 2017 17:57
== END 2017-08-23 16:49 | disposition home or self-care (01) ==
LOC: NEPE 14:43 → NEDA 18:16 → INTOOBSV 18:16 → NEPGCP 19:44
PROVIDERS: ADMIT Family Medicine; ATTEND Family Medicine
DX: R55 Syncope and collapse (principal); S09.90XA Unspecified injury of head, initial encounter; R79.1 Abnormal coagulation profile; N17.9 Acute kidney failure, unspecified; I25.10 Atherosclerotic heart disease of native coronary artery without angina pectoris; I10 Essential (primary) hypertension; E78.5 Hyperlipidemia, unspecified; E87.1 Hypo-osmolality and hyponatremia; G91.2 (Idiopathic) normal pressure hydrocephalus; I25.5 Ischemic cardiomyopathy; I63.9 Cerebral infarction, unspecified; M21.372 Foot drop, left foot; Z79.01 Long term (current) use of anticoagulants; Z95.5 Presence of coronary angioplasty implant and graft; Z95.810 Presence of automatic (implantable) cardiac defibrillator; Z87.891 Personal history of nicotine dependence; Z96.643 Presence of artificial hip joint, bilateral
CPT/HCPCS: 70450; 70498; 71010; 72125; 80048; 80053; 80061; 81001; 82550; 82552; 83735; 84443; 84484; 85025; 85610; 85730; 93005; 93306; 93880; 96360; 96361; 97162; 99285; G0378; G8987; G8988; J7030; Q9967